=== PATIENT | female | born 1995 | race Caucasian/White ===

== ENCOUNTER 2017-12-16 01:20 | Emergency (ER) | payer SELFPAY ==
[2017-12-16] MEDS ORDERED: Sodium Chloride 0.9% 1,000 ML IV STA (01:46)
[2017-12-16 02:13] LABS: BASO # 0.1 K/uL (0.0-0.2); EOS # 0.1 K/uL (0.0-0.7); HEMOGLOBIN 13.4 g/dL (12.0-16.0); LYMPH # 2.7 K/uL (1.0-4.3); LYMPH % 49.7 % (20.0-40.0); MEAN CELL VOLUME 90.9 fl (81.0-99.0); MEAN CORPUSCULAR HEMOGLOBIN 31.2 pg (27.0-31.0); MEAN CORPUSCULAR HGB CONC 34.3 g/dL (33.0-37.0); MEAN PLATELET VOLUME 9.1 fl (7.2-11.7); MONO # 0.4 K/uL (0.0-0.8); MONO % 6.5 % (0.0-10.0); NEUT # 2.3 K/uL (1.8-7.0); NEUT % 41.8 % (50.0-75.0); NRBC % 0.1 % (0.0-0.0); RBC 4.3 Mil/uL (3.80-5.20); RED CELL DISTRIBUTION WIDTH 12.9 % (11.5-14.5); WHITE BLOOD COUNT 5.5 K/uL (4.8-10.8)
[2017-12-16 02:23] LABS: ALB/GLOB RATIO 1.4 (1.0-2.1); ALBUMIN 4.6 g/dL (3.5-5.0); ALT/SGPT 22 U/L (9-52); AST/SGOT 22 U/L (14-36); BLOOD UREA NITROGEN 11 mg/dl (7-17); CALCIUM 9.8 mg/dL (8.4-10.2); GFR AFRICAN-AMERICAN > 60; GFR NON-AFRICAN AMERICAN > 60
--- NOTE | 2017-12-16 03:15 | ED PDOC ---
HPI: Psych/Substance Abuse Time Seen by Provider: 12/16/17 01:37 Chief Complaint (Nursing): Alcohol Ingestion Chief Complaint (Provider): anxiety and ETOH intoxication History Per: Patient History/Exam Limitations: no limitations Onset/Duration Of Symptoms: Hrs (today) Current Symptoms Are (Timing): Still Present Associated Symptoms: Anxiety Additional Complaint(s): Faviola Bearden is a 22 year old female, with a past medical history of panic disorder, who was brought to the emergency department via EMS for alcohol intoxication and anxiety onset today. Patient states she was at a local bar and doesn't recall events clearly. Patient states she woke up and found herself laying on public walkway and had vomited. She doesn't recall how she was from her cousin who she was out with. Patient currently feels anxious but denies any other medical complaints. She admits to alcohol use but denies drug use. No further medical complaints. PMD: None provided. Past Medical History Reviewed: Historical Data, Nursing Documentation, Vital Signs Vital Signs: Last Vital Signs Temp 98.2 F 12/16/17 01:30 Pulse 64 12/16/17 01:30 Resp 16 12/16/17 01:30 BP 138/90 12/16/17 01:30 Pulse Ox 98 12/16/17 01:30 - Medical History PMH: Anxiety - Surgical History Surgical History: No Surg Hx - Family History Family History: States: Unknown Family Hx - Social History Current smoker - smoking cessation education provided: No Alcohol: Occasional Drugs: Denies - Allergies Allergies/Adverse Reactions: Allergies Allergy/AdvReac Type Severity Reaction Status Date / Time No Known Allergies Allergy Verified 12/16/17 01:33 Review of Systems ROS Statement: Except As Marked, All Systems Reviewed And Found Negative Constitutional: Positive for: Other (alcohol intoxication) Psych: Positive for: Anxiety Physical Exam - Reviewed Nursing Documentation Reviewed: Yes Vital Signs Reviewed: Yes - Physical Exam Appears: Positive for: No Acute Distress Head Exam: Positive for: ATRAUMATIC, NORMAL INSPECTION, NORMOCEPHALIC Skin: Positive for: Normal Color, Warm, Dry Eye Exam: Positive for: Normal appearance, EOMI, PERRL Neck: Positive for: Painless ROM Cardiovascular/Chest: Positive for: Tachycardia (regular rhythm). Negative for : Murmur Respiratory: Positive for: Normal Breath Sounds. Negative for: Respiratory Distress Gastrointestinal/Abdominal: Positive for: Normal Exam, Soft. Negative for: Tenderness Extremity: Positive for: Normal ROM (upper and lower extremities). Negative for : Deformity, Swelling Neurologic/Psych: Positive for: Alert, Oriented, Mood/Affect (anxious and tearful) - Laboratory Results Result Diagrams: 12/16/17 02:10 12/16/17 02:10 - ECG O2 Sat by Pulse Oximetry: 98 (RA) Pulse Ox Interpretation: Normal Medical Decision Making Medical Decision Making: Time: 01:37 Initial Impression: 22 y/o female with acute anxiety in setting of alcohol use Initial Plan: --Alcohol serum --CMP --Drug screen, urine --CBC w/ differential --Ativan 1 mg PO --Sodium Chloride 1,000 ml IV 1,000 mls/hr --Zofran Inj 4 mg IV --Accucheck --Reevaluation 05:37 -Patient is clinically for sober for discharge home. Diagnosis of alcohol intoxication and anxiety. ----- Scribe Attestation: Documented by Ismael Nogueira, acting as a scribe for Damián Chacko MD. Provider Scribe Attestation: All medical record entries made by the Scribe were at my direction and personally dictated by me. I have reviewed the chart and agree that the record accurately reflects my personal performance of the history, physical exam, medical decision making, and the department course for this patient. I have also personally directed, reviewed, and agree with the discharge instructions and disposition. Disposition - Clinical Impression Clinical Impression: Anxiety, Alcohol intoxication - Disposition Disposition: Routine/Home Disposition Time: 05:37 Condition: STABLE Instructions: Alcohol Use - When Is Drinking a Problem?, Anxiety, Adult (DC) Forms: [employer] (Kyrgyz)
[2017-12-16 06:22] VITALS: BP 118/64; PULSE 86; RESP 14; TEMP 97.9; O2SAT 100
[2017-12-16 06:33] LABS: BARBITURATES, UR NEGATIVE (NEGATIVE); BENZODIAZEPINES, UR NEGATIVE (NEGATIVE); OPIATES, UR NEGATIVE (NEGATIVE); PHENCYCLIDINE, UR NEGATIVE (NEGATIVE)
== END 2017-12-16 05:50 | disposition home or self-care (01) ==
LOC: H.ER 01:20
DX: F10.129 Alcohol abuse with intoxication, unspecified (principal); F41.9 Anxiety disorder, unspecified; Y90.7 Blood alcohol level of 200-239 mg/100 ml
CPT/HCPCS: 80053; 81025; 85025; 99283; G0480; J2405; J7030